=== PATIENT | male | born 1995 | race Caucasian/White ===

== ENCOUNTER 2020-04-17 01:18 | Emergency (ER) | payer MEDICAID, SELFPAY ==
[2020-04-17 01:23] VITALS: BP 127/78; PULSE 90; RESP 18; TEMP 36.5; O2SAT 98
[2020-04-17] MEDS: LIDOCAINE HCL 2% VISC SOLN 15 ML UDC PO (02:41)
--- NOTE | 2020-04-17 03:19 | ED_ITS ---
HPI - Fever General Chief Complaint: Fever Stated Complaint: fever Time Seen by Provider: 04/17/20 01:27 History of Present Illness HPI Narrative: Patient is a 24-year-old male who presents ER with sore throat. Ongoing for the last week. Developed fever today. Has pain with swallowing. No actual difficulty swallowing or breathing. No known sick contacts. Has history of strep throat. Related Data Allergies Allergy/AdvReac Type Severity Reaction Status Date / Time clindamycin Allergy Chest Pain Verified 04/17/20 01:33 Review of Systems Constitutional: Constitutional: Denies chills and Reports fever(s) ENT: Denies dysphagia, Denies nasal congestion and Reports sore throat Respiratory: Respiratory: Denies cough and Denies dyspnea PMFSH Past Medical History Medical History (Updated 04/17/20 @ 03:23 by Mike Blankenship MD) Healthy adult male Surgical History Surgical History (Updated 04/17/20 @ 03:20 by Mike Blankenship MD) No history of previous surgery Exam Narrative: Exam Narrative: GENERAL: Well-appearing, well-nourished, and in no acute distress. HEAD: Normocephalic, atraumatic. ENT: Mucous membranes moist. Tonsillar hypertrophy with kissing tonsils with exudate. No erythema. Uvula midline. NECK: Bilateral anterior cervical chain lymphadenopathy. CHEST: Clear to auscultation. No respiratory distress. HEART: Regular rate and rhythm. Normal peripheral pulses. EXTREMITIES: Normal range of motion. No edema. NEURO: Alert and oriented x3. Course [employer] OPERATOR HELPER/PA Physician Supervision Patient feeling better with Decadron and viscous lidocaine. Strep negative. Discharge home. Vital Signs Vital signs: Vital Signs Temperature 97.7 F 04/17/20 01:23 Pulse Rate 90 04/17/20 01:23 Respiratory Rate 18 04/17/20 01:23 Blood Pressure 127/78 04/17/20 01:23 Pulse Oximetry 98 04/17/20 01:23 Temperature 97.7 F 04/17/20 01:23 Pulse Rate 90 04/17/20 01:23 Respiratory Rate 18 04/17/20 01:23 Blood Pressure 127/78 04/17/20 01:23 Pulse Oximetry 98 04/17/20 01:23 MDM - Fever Lab Data Labs: Strep Screen Presumptive Negative *(Reference Range: Negative)* Discharge Plan Discharge Clinical Impression: Acute tonsillitis Patient Disposition: Home, Self-Care Condition: Stable Instructions: Tonsillitis (ED) Additional Instructions: Return to the ER if you cannot breathe, you cannot swallow, you cannot move your neck, you have additional concerns. Prescriptions: New Lidocaine Viscous 2 % solution 1 applic mucous membrane TID PRN (Reason: pain) Qty: 100 RF: 0 Follow-up/Referrals: Agus Luo Jr., MD [Physician] - 1 Week PHYSICIAN,BRANDING MACHINE OPERATOR [Primary Care Provider] -
== END 2020-04-17 03:31 | disposition home or self-care (01) ==
PROVIDERS: Emergency Provider Emergency Medicine
DX: J03.90 Acute tonsillitis, unspecified (principal)
CPT/HCPCS: 87081; 87880; 99283; J8540

== ENCOUNTER 2020-05-13 03:05 | Emergency (ER) | payer MEDICAID, SELFPAY ==
--- NOTE | ~2020-05-13 | XR_ITS ---
EXAMINATION: XR knee LT 3V DATE: 05/13/2020 03:35 INDICATION: Left knee pain TECHNIQUE: Three views of the left knee were obtained. COMPARISON: None. FINDINGS: Alignment is normal. No fracture or osteochondral lesion. Joint spaces are normal with no e rosions. No joint effusion/synovitis. Soft tissues are unremarkable. IMPRESSION: 1. No acute osseous abnormality. Reviewed, dictated and finalized at location A. [employer] [employer]
[2020-05-13 03:06] VITALS: BP 136/80; PULSE 97; RESP 18; TEMP 36.1; O2SAT 98
--- NOTE | 2020-05-13 03:26 | ED.GENADULT ---
HPI - General Adult General Chief complaint: Extremity Injury, Lower Stated complaint: knee pain Time Seen by Provider: 05/13/20 03:13 History of Present Illness HPI narrative: Patient a 24-year-old gentleman who presents the emergency department with chief complaint of left knee pain. Patient reports that several days ago he was at work and felt a pop in his left knee. The patient states that subsequently he has developed pain on the medial aspect of his knee states it hurts worse whenever he moves it states improved with rest. Patient denies swelling denies fever denies chills denies redness to the affected area. Patient reports no prior significant injury to the knee Related Data Allergies Allergy/AdvReac Type Severity Reaction Status Date / Time clindamycin Allergy Chest Pain Verified 04/17/20 01:33 Review of Systems Review of Systems: Narrative: A 10 system review of systems was completed on the patient and is negative except for what is stated in the HPI. Nursing and ancillary documentation was reviewed. [facility] Past Medical History Medical History Healthy adult male Surgical History Surgical History No history of previous surgery Comments Social history the patient denies smoking Exam Narrative: Exam Narrative: GENERAL: Well-appearing, well-nourished, and in no acute distress. HEAD: Normocephalic, atraumatic. EYES: PERRLA and EOMI. ENT: Nares clear, no rhinorrhea or epistaxis. Mucous membranes moist. NECK: Supple. CHEST: Clear to auscultation. No respiratory distress. HEART: Regular rate and rhythm. No murmur heard. Normal peripheral pulses. ABDOMEN: Soft, nontender, nondistended, normal active bowel sounds. EXTREMITIES: Normal range of motion. No edema. There is tenderness to palpation of the medial aspect of the left knee SKIN: Warm, dry, no rash. NEURO: No focal deficits. Alert and oriented x3. PSYCH: Normal mood and affect. Course Vital Signs Vital signs: Vital Signs Temperature 36.1 C L 05/13/20 03:06 Pulse Rate 97 05/13/20 03:06 Respiratory Rate 18 05/13/20 03:06 Blood Pressure 136/80 05/13/20 03:06 Pulse Oximetry 98 05/13/20 03:06 Temperature 36.1 C L 05/13/20 03:06 Pulse Rate 97 05/13/20 03:06 Respiratory Rate 18 05/13/20 03:06 Blood Pressure 136/80 05/13/20 03:06 Pulse Oximetry 98 05/13/20 03:06 Medical Decision Making Vital Signs Vital Signs: Vital Signs Temperature 36.1 C L 05/13/20 03:06 Pulse Rate 97 05/13/20 03:06 Respiratory Rate 18 05/13/20 03:06 Blood Pressure 136/80 05/13/20 03:06 Pulse Oximetry 98 05/13/20 03:06 Temperature 36.1 C L 05/13/20 03:06 Pulse Rate 97 05/13/20 03:06 Respiratory Rate 18 05/13/20 03:06 Blood Pressure 136/80 05/13/20 03:06 Pulse Oximetry 98 05/13/20 03:06 Discharge Plan Discharge Clinical Impression: Left knee sprain Qualifiers: Encounter type: initial encounter Involved ligament of knee: unspecified ligament Qualified Code(s): S83.92XA - Sprain of unspecified site of left knee, initial encounter Patient Disposition: Home, Self-Care Condition: Stable Instructions: Antibiotic Form, Knee Sprain (ED) Prescriptions: New meloxicam 15 mg tablet 15 mg PO DAILY Qty: 14 RF: 0 No Action Lidocaine Viscous 2 % solution 1 applic mucous membrane TID PRN (Reason: pain) Qty: 100 RF: 0 Follow-up/Referrals: Jordan Cisse MD [Physician] - PHYSICIAN,GROCERY BUYER [Primary Care Provider] - Time of Disposition: 03:50
[2020-05-13] MEDS: KETOROLAC (*BKC) 60 MG/2 ML VIAL IM (03:42)
[2020-05-13 04:20] VITALS: BP 129/89; PULSE 74; RESP 12; O2SAT 99
== END 2020-05-13 04:20 | disposition home or self-care (01) ==
LOC: ANHED 03:53
PROVIDERS: Emergency Provider Emergency Medicine
DX: S83.92XA Sprain of unspecified site of left knee, initial encounter (principal); X50.9XXA Other and unspecified overexertion or strenuous movements or postures, initial encounter
CPT/HCPCS: 73562; 96372; 99283; J1885